=== PATIENT | female | born 1995 | race Caucasian/White ===

== ENCOUNTER 2017-12-30 14:39 | Emergency (ER) | payer OTHER ==
[2017-12-30] MEDS ORDERED: XYLOCAINE 1% HCL 20 ML MDV IJ ONE (18:28)
[2017-12-30] MEDS ORDERED: BACIGUENT PACKET TP ONE (18:47)
[2017-12-30] MEDS ORDERED: XYLOCAINE 1% HCL 20 ML MDV ONE (18:48)
[2017-12-30] MEDS ORDERED: BACIGUENT PACKET ONE (18:48)
--- NOTE | 2017-12-30 18:53 | ERPHSYRPT ---
- History of Present Illness Time Seen by Provider: 12/30/17 18:47 Source: patient, other Exam Limitations: no limitations Patient Subjective Stated Complaint: cut hand on broken dog bowl. Triage Nursing Assessment: has laceration to right middle finger, no bleeding, aprox 1/2cm Physician History: The patient is a 22-year-old right-handed female with her boyfriend complaining that she accidentally cut the distal part of her right middle finger on a broken dog bowl prior to arrival. She denies numbness or tingling. She is able to bend and extend her middle finger without any problems. Her last tetanus vaccination was less than 5 years ago. Timing/Duration: today Quality: other (bleeding) Severity: mild Location: hands (right middle finger) Possible Causes: other (glass) Allergies/Adverse Reactions: No Known Drug Allergies Allergy (Unverified 12/30/17 15:08) Home Medications: Clonazepam 0.5 mg [Klonopin 0.5 MG] 0.5 mg DAILY 12/30/17 [History] Fluoxetine HCl 20 mg [Prozac 20 MG] 20 mg DAILY 12/30/17 [History] Hx Tetanus, Diphtheria Vaccination/Date Given: Yes Hx Influenza Vaccination/Date Given: No Hx Pneumococcal Vaccination/Date Given: No Immunizations Up to Date: Yes - Review of Systems Constitutional: No Fever, No Chills Eyes: No Symptoms Ears, Nose, & Throat: No Symptoms Respiratory: No Cough, No Dyspnea Cardiac: No Chest Pain, No Edema, No Syncope Abdominal/Gastrointestinal: No Abdominal Pain, No Nausea, No Vomiting, No Diarrhea Genitourinary Symptoms: No Dysuria Musculoskeletal: No Back Pain, No Neck Pain Skin: Other (laceration) Neurological: No Dizziness, No Focal Weakness, No Sensory Changes Psychological: No Symptoms Endocrine: No Symptoms Hematologic/Lymphatic: No Symptoms Immunological/Allergic: No Symptoms All Other Systems: Reviewed and Negative - Past Medical History Pertinent Past Medical History: No - Past Surgical History Past Surgical History: Yes - Social History Smoking Status: Never smoker Exposure to second hand smoke: Yes Drug Use: none Patient Lives Alone: No - Female History Hx Last Menstrual Period: now Hx Now: No - Nursing Vital Signs Nursing Vital Signs: Initial Vital Signs Pulse Rate 106 H 12/30/17 15:50 Respiratory Rate 18 12/30/17 15:50 Blood Pressure 110/82 12/30/17 15:50 Pain Scale Pain Intensity 7 - Physical Exam General Appearance: no apparent distress, alert Eye Exam: PERRL/EOMI, eyes nml inspection Ears, Nose, Throat Exam: normal ENT inspection, pharynx normal, moist mucous membranes Neck Exam: normal inspection, non-tender, supple, full range of motion Respiratory Exam: normal breath sounds, lungs clear, No respiratory distress Cardiovascular Exam: regular rate/rhythm, normal heart sounds Gastrointestinal/Abdomen Exam: soft, mass, No tenderness Pelvic Exam: not done Rectal Exam: not done Back Exam: normal inspection, normal range of motion, No CVA tenderness, No vertebral tenderness Extremity Exam: normal inspection, normal range of motion Neurologic Exam: alert, oriented x 3, cooperative, normal mood/affect, sensation nml, No motor deficits Skin Exam: laceration (1 cm laceration to palmar side of DIP joint of right middle finger) SpO2 Interpretation: normal Oxygen Delivery: Room Air Procedures - Laceration/Wound Repair Right Distal Finger Wound Location: Right, hand Wound Length (cm): 1 Wound's Depth, Shape: superficial, linear Wound Explored: clean Irrigated: Yes Hibiclens Prep: Yes Anesthesia: local, 1% Lidocaine Volume Anesthetic (ccs): 3 Wound Repaired With: sutures Suture Size/Type: 4-0 Number of Sutures: 2 Layer Closure?: No Sterile Dressing Applied?: Yes Splint Applied?: Yes Sling Applied?: No Ordered Tests: Medication Summary Discontinued Medications Generic Name Dose Route Start Last Admin Trade Name Thomasq PRN Reason Stop Dose Admin Lidocaine HCl 10 ml 12/30/17 18:28 Xylocaine 1% Hcl 20 Ml Mdv IJ 12/30/17 18:29 STAT ONE - Progress Progress: improved Counseled pt/family regarding: diagnosis, need for follow-up - Departure Time of Disposition: 18:51 Departure Disposition: Home Clinical Impression: Finger laceration Condition: Stable Critical Care Time: No Referrals: DOCTOR,NO FAMILY [Primary Care Provider] - Additional Instructions: You have a laceration to your right finger. 2 sutures were used to close the laceration. Have the sutures removed in 12-14 days. You were put in a finger splint for one to 2 days. You can get the finger wet briefly but do not take a bath for a long period of time. Have your primary care doctor remove the sutures.
[2017-12-30 18:56] VITALS: BP 129/98; PULSE 88; O2SAT 99
== END 2017-12-30 18:59 | disposition home or self-care (01) ==
LOC: ED 14:39
DX: S61.212A Laceration without foreign body of right middle finger without damage to nail, initial encounter (principal); W45.8XXA Other foreign body or object entering through skin, initial encounter
CPT/HCPCS: 12001; 96372; 99284; A9270-GY

== ENCOUNTER 2019-09-20 07:27 | Emergency (ER) | payer OTHER ==
--- NOTE | 2019-09-20 07:31 | ERPHSYRPT ---
- History of Present Illness Time Seen by Provider: 09/20/19 07:31 Historian: patient Exam Limitations: no limitations Physician History: This is a 23-year-old white female whose had no prior abdominal surgeries and is just about ready to start her menstrual. And presents with left lower quadrant abdominal pain. Last week, the patient stated that she was constipated for a few days. She took a stool softener and since that time she has had bowel movements daily. There was some aching and pressure in the left lower quadrant yesterday. However, this morning the pain was sharp and much worse. She is had no nausea vomiting or diarrhea. She has had no vaginal discharge. The pain stays in the left lower quadrant without radiation Timing/Duration: yesterday, worse Activities at Onset: none Quality: sharpness, stabbing Abdominal Pain Onset Location: LLQ Pain Radiation: no radiation Severity of Pain-Max: moderate Severity of Pain-Current: moderate Modifying Factors: Improves With: urinating (Feels pressure) Associated Symptoms: denies symptoms Previous symptoms: no prior history Allergies/Adverse Reactions: No Known Drug Allergies Allergy (Verified 09/20/19 07:37) Home Medications: Clonazepam 0.5 mg [Klonopin 0.5 MG] 0.5 mg PO DAILY 12/30/17 [History] Fluoxetine HCl 20 mg [Prozac 20 MG] 20 mg PO DAILY 12/30/17 [History] Hx Tetanus, Diphtheria Vaccination/Date Given: Yes Hx Influenza Vaccination/Date Given: No Hx Pneumococcal Vaccination/Date Given: No Travel Risk - International Travel Have you traveled outside of the country in past 3 weeks: No - Coronavirus Screening Are you exhibiting any of the following symptoms?: No Close contact with a COVID-19 positive Pt in past 14-21 Days: No - Review of Systems Constitutional: No Symptoms Eyes: No Symptoms Ears, Nose, & Throat: No Symptoms Respiratory: No Symptoms Cardiac: No Symptoms Abdominal/Gastrointestinal: Abdominal Pain Genitourinary Symptoms: No Symptoms Musculoskeletal: No Symptoms Skin: No Symptoms Neurological: No Symptoms Psychological: No Symptoms Endocrine: No Symptoms Hematologic/Lymphatic: No Symptoms Immunological/Allergic: No Symptoms All Other Systems: Reviewed and Negative - Past Medical History Pertinent Past Medical History: No Neurological History: No Pertinent History ENT History: No Pertinent History Cardiac History: No Pertinent History Respiratory History: No Pertinent History Endocrine Medical History: No Pertinent History Musculoskeletal History: No Pertinent History GI Medical History: No Pertinent History History: No Pertinent History Psycho-Social History: No Pertinent History Female Reproductive Disorders: No Pertinent History - Past Surgical History Past Surgical History: Yes Neuro Surgical History: No Pertinent History Cardiac: No Pertinent History Respiratory: No Pertinent History Gastrointestinal: No Pertinent History Genitourinary: No Pertinent History Musculoskeletal: No Pertinent History Female Surgical History: No Pertinent History - Social History Smoking Status: Never smoker Exposure to second hand smoke: Yes Drug Use: none Patient Lives Alone: No - Nursing Vital Signs Nursing Vital Signs: Initial Vital Signs Pulse Rate 99 H 09/20/19 07:38 Respiratory Rate 18 09/20/19 07:38 Blood Pressure 135/92 09/20/19 07:38 O2 Sat by Pulse Oximetry 97 09/20/19 07:38 Pain Scale Pain Intensity 7 - Physical Exam General Appearance: no apparent distress, alert, anxiety Eye Exam: PERRL/EOMI, eyes nml inspection Ears, Nose, Throat Exam: normal ENT inspection, moist mucous membranes Neck Exam: normal inspection, non-tender, supple, full range of motion Respiratory Exam: normal breath sounds, lungs clear, airway intact, No chest tenderness, No respiratory distress Cardiovascular Exam: regular rate/rhythm, normal heart sounds, normal peripheral pulses Gastrointestinal/Abdomen Exam: soft, normal bowel sounds, tenderness (Mild left lower quadrant), guarding (Tenderness left lower quadrant mild left lower quadrant), No rebound Pelvic Exam: not done Rectal Exam: not done Back Exam: normal inspection, normal range of motion, No CVA tenderness, No vertebral tenderness Extremity Exam: normal inspection, normal range of motion, pelvis stable Neurologic Exam: alert, oriented x 3, cooperative, sod stripper II-XII nml as tested, nml cerebellar function, nml station & gait, sensation nml Skin Exam: normal color, warm, dry Lymphatic Exam: No adenopathy O2 Delivery: Room Air - Course Nursing assessment & vital signs reviewed: Yes Ordered Tests: Active Orders 24 hr Category Date Time Status IV Insertion STAT Care 09/20/19 07:47 Active ABDOMEN AND PELVIS W/0 CONTRAS [CT] Stat Exams 09/20/19 08:32 Completed AMYLASE Stat Lab 09/20/19 Completed CBC W DIFF Stat Lab 09/20/19 08:00 Completed CMP Stat Lab 09/20/19 Completed HCG,QUALITATIVE URINE Stat Lab 09/20/19 Completed LIPASE Stat Lab 09/20/19 Completed Lactic Acid Stat Lab 09/20/19 07:55 Completed UA W/RFX UR CULTURE Stat Lab 09/20/19 Completed Urine Triage Profile Stat Lab 09/20/19 Completed Lab/Rad Data: Laboratory Result Diagrams 09/20/19 08:00 09/20/19 Unknown Laboratory Results 09/20/19 09/20/19 09/20/19 Range/Units Unknown Unknown Unknown WBC (4.0-10.5) K/mm3 RBC (4.1-5.4) M/mm3 Hgb (12.0-16.0) gm/dl Hct (35-47) % MCV (78-100) fl MCH (26-32) pg MCHC (32-36) g/dl RDW (11.5-14.0) % Plt Count (150-450) K/mm3 MPV (7.5-11.0) fl Gran % (36.0-66.0) % Eos # (Auto) (0-0.5) Absolute Lymphs (auto) (1.0-4.6) Absolute Monos (auto) (0.0-1.3) Lymphocytes % (24.0-44.0) % Monocytes % (0.0-12.0) % Eosinophils % (0.00-5.0) % Basophils % (0.0-0.4) % Absolute Granulocytes (1.4-6.9) Basophils # (0-0.4) Sodium (137-145) mmol/L Potassium (3.5-5.1) mmol/L Chloride (98-107) mmol/L Carbon Dioxide (22-30) mmol/L Anion Gap (5-15) MEQ/L BUN (7-17) mg/dL Creatinine (0.52-1.04) mg/dL Estimated GFR ML/MIN Glucose (74-106) mg/dL Lactic Acid (0.4-2.0) Calcium (8.4-10.2) mg/dL Total Bilirubin (0.2-1.3) mg/dL AST (14-36) U/L ALT (0-35) U/L Alkaline Phosphatase (38-126) U/L Serum Total Protein (6.3-8.2) g/dL Albumin (3.5-5.0) g/dL Amylase (30-110) U/L Lipase (23-300) U/L Urine Color YELLOW (YELLOW) Urine Appearance SLIGHTLY CLOUDY (CLEAR) Urine pH 5.0 (5-6) Ur Specific Bradford 1.020 (1.005-1.025) Urine Protein NEGATIVE (Negative) Urine Ketones NEGATIVE (NEGATIVE) Urine Blood NEGATIVE (0-5) Mikel/ul Urine Nitrite NEGATIVE (NEGATIVE) Urine Bilirubin NEGATIVE (NEGATIVE) Urine Urobilinogen NEGATIVE (0-1) mg/dL Ur Leukocyte Esterase NEGATIVE (NEGATIVE) Urine WBC (Auto) NONE (0-5) /HPF Urine RBC (Auto) 3-5 (0-2) /HPF U Epithel Cells (Auto) FEW (FEW) /HPF Urine Bacteria (Auto) RARE (NEGATIVE) /HPF Urine Mucus (Auto) SLIGHT (NEGATIVE) /HPF Urine Culture Reflexed NO (NO) Urine Glucose NEGATIVE (NEGATIVE) mg/dL Urine HCG, Qual NEGATIVE (Negative) Urine Opiates Level NEGATIVE (NEGATIVE) Ur Methadone NEGATIVE (NEGATIVE) Urine Barbiturates NEGATIVE (NEGATIVE) Ur Phencyclidine (PCP) NEGATIVE (NEGATIVE) Urine Amphetamine NEGATIVE (NEGATIVE) U Benzodiazepine Level NEGATIVE (NEGATIVE) Urine Cocaine NEGATIVE (NEGATIVE) Urine Marijuana (THC) NEGATIVE (NEGATIVE) 09/20/19 09/20/19 09/20/19 Range/Units Unknown 08:00 07:55 WBC 5.4 (4.0-10.5) K/mm3 RBC 4.91 (4.1-5.4) M/mm3 Hgb 13.0 (12.0-16.0) gm/dl Hct 40.8 (35-47) % MCV 83.1 (78-100) fl MCH 26.5 (26-32) pg MCHC 31.9 L (32-36) g/dl RDW 14.0 (11.5-14.0) % Plt Count 229 (150-450) K/mm3 MPV 10.9 (7.5-11.0) fl Gran % 45.1 (36.0-66.0) % Eos # (Auto) 0.11 (0-0.5) Absolute Lymphs (auto) 2.44 (1.0-4.6) Absolute Monos (auto) 0.39 (0.0-1.3) Lymphocytes % 45.1 H (24.0-44.0) % Monocytes % 7.2 (0.0-12.0) % Eosinophils % 2.0 (0.00-5.0) % Basophils % 0.6 (0.0-0.4) % Absolute Granulocytes 2.44 (1.4-6.9) Basophils # 0.03 (0-0.4) Sodium 138 (137-145) mmol/L Potassium 3.6 (3.5-5.1) mmol/L Chloride 103 (98-107) mmol/L Carbon Dioxide 27 (22-30) mmol/L Anion Gap 11.4 (5-15) MEQ/L BUN 13 (7-17) mg/dL Creatinine 0.78 (0.52-1.04) mg/dL Estimated GFR > 60.0 ML/MIN Glucose 103 (74-106) mg/dL Lactic Acid 0.8 (0.4-2.0) Calcium 9.4 (8.4-10.2) mg/dL Total Bilirubin 0.40 (0.2-1.3) mg/dL AST 24 (14-36) U/L ALT 18 (0-35) U/L Alkaline Phosphatase 82 (38-126) U/L Serum Total Protein 7.8 (6.3-8.2) g/dL Albumin 4.5 (3.5-5.0) g/dL Amylase 72 (30-110) U/L Lipase 178 (23-300) U/L Urine Color (YELLOW) Urine Appearance (CLEAR) Urine pH (5-6) Ur Specific Bradford (1.005-1.025) Urine Protein (Negative) Urine Ketones (NEGATIVE) Urine Blood (0-5) Mikel/ul Urine Nitrite (NEGATIVE) Urine Bilirubin (NEGATIVE) Urine Urobilinogen (0-1) mg/dL Ur Leukocyte Esterase (NEGATIVE) Urine WBC (Auto) (0-5) /HPF Urine RBC (Auto) (0-2) /HPF U Epithel Cells (Auto) (FEW) /HPF Urine Bacteria (Auto) (NEGATIVE) /HPF Urine Mucus (Auto) (NEGATIVE) /HPF Urine Culture Reflexed (NO) Urine Glucose (NEGATIVE) mg/dL Urine HCG, Qual (Negative) Urine Opiates Level (NEGATIVE) Ur Methadone (NEGATIVE) Urine Barbiturates (NEGATIVE) Ur Phencyclidine (PCP) (NEGATIVE) Urine Amphetamine (NEGATIVE) U Benzodiazepine Level (NEGATIVE) Urine Cocaine (NEGATIVE) Urine Marijuana (THC) (NEGATIVE) - Progress Progress: unchanged Progress Note: 09/20/19 09:25 CAT scan of the abdomen pelvis reveals to left ovarian cyst. No other acute intra-abdominal abnormality. The appendix is visualized and it is normal Counseled pt/family regarding: lab results, diagnosis, need for follow-up, rad results - Departure Departure Disposition: Home Clinical Impression: Left ovarian cyst Condition: Stable Critical Care Time: No Referrals: DOCTOR,NO FAMILY [Primary Care Provider] - Additional Instructions: Drink plenty of fluids. Use Tylenol and ibuprofen for pain. Follow-up with your primary care physician for further management.
[2019-09-20 07:49] VITALS: O2SAT 97
[2019-09-20 08:17] LABS: Absolute Neutrophil Ct (ANC) 2.44 (1.4-6.9); BASOPHIL % 0.6 % (0.0-0.4); Basophil (Absolute #) 0.03 (0-0.4); Eosinophil (Absolute #) 0.11 (0-0.5); Hematocrit 40.8 % (35-47); Lymphocyte (Absolute #) 2.44 (1.0-4.6); Lymphocytes % 45.1 % (24.0-44.0); Mean Cell Volume 83.1 fl (78-100); Mean Corpuscular Hemoglobin 26.5 pg (26-32); Mean Corpuscular Hgb Concent. 31.9 g/dl (32-36); Mean Platelet Volume 10.9 fl (7.5-11.0); Monocyte (Absolute #) 0.39 (0.0-1.3); Monocytes % 7.2 % (0.0-12.0); Neutrophil % 45.1 % (36.0-66.0); Platelet Count 229 K/mm3 (150-450); Red Blood Count 4.91 M/mm3 (4.1-5.4); White Blood Count 5.4 K/mm3 (4.0-10.5)
[2019-09-20 08:29] LABS: Appearance SLIGHTLY CLOUDY (CLEAR); Bacteria RARE /HPF (NEGATIVE); Bilirubin NEGATIVE (NEGATIVE); Blood NEGATIVE Ery/ul (0-5); Epithelial Cells FEW /HPF (FEW); Glucose NEGATIVE (NEGATIVE); Ketones NEGATIVE (NEGATIVE); Leukocyte Esterase NEGATIVE (NEGATIVE); Mucus SLIGHT /HPF (NEGATIVE); Nitrite NEGATIVE (NEGATIVE); Protein,Urine Dip NEGATIVE (Negative); Urobilinogen NEGATIVE mg/dL (0-1)
[2019-09-20 08:39] LABS: ALBUMIN 4.5 g/dL (3.5-5.0); ALKALINE PHOSPHATASE 82 U/L (38-126); AMYLASE 72 U/L (30-110); ANION GAP 11.4 MEQ/L (5-15); BLOOD UREA NITROGEN 13 mg/dL (7-17); CHLORIDE 103 mmol/L (98-107); Calcium 9.4 mg/dL (8.4-10.2); Carbon Dioxide 27 mmol/L (22-30); Creatinine 1 0.78 mg/dL (0.52-1.04); Glucose 103 mg/dL (74-106); LIPASE 178 U/L (23-300); Potassium 3.6 mmol/L (3.5-5.1); SGOT/AST 24 U/L (14-36); SGPT/ALT 18 U/L (0-35); SODIUM 138 mmol/L (137-145); Total Protein 7.8 g/dL (6.3-8.2)
[2019-09-20 08:50] LABS: Amphetamine,Urine NEGATIVE (NEGATIVE); Barbiturate,Urine NEGATIVE (NEGATIVE); Benzodiazepine,Urine NEGATIVE (NEGATIVE); Cocaine,Urine NEGATIVE (NEGATIVE); Methadone,Urine NEGATIVE (NEGATIVE); Opiate,Urine NEGATIVE (NEGATIVE); PCP,Urine NEGATIVE (NEGATIVE); THC,Urine NEGATIVE (NEGATIVE)
--- NOTE | 2019-09-20 09:11 | XRAY ---
Indication: Left lower quadrant pain. Multiple contiguous axial images obtained through the abdomen and pelvis without contrast as ordered. Comparison: None Lung bases are clear. Heart is not enlarged. Noncontrasted stomach and bowel loops appear nonobstructed. Normal appendix. Left ovary demonstrates a 3.2 cm and 1.6 cm cyst. No free fluid/air. Borderline splenomegaly measuring 12.3 cm. Remaining liver, gallbladder, pancreas, spleen, adrenal glands, kidneys, ureters, bladder, uterus, and aorta appear unremarkable for noncontrast exam. Osseous structures intact. Incidental tiny multilevel thoracolumbar Schmorl nodes and bilateral L5 spondylolysis without spondylolisthesis. Impression: 1. 3.2 cm and 1.6 cm left ovary cysts. 2. Incidental borderline splenomegaly and chronic bony findings.
[2019-09-20 09:24] VITALS: BP 124/81; PULSE 99
== END 2019-09-20 09:39 | disposition home or self-care (01) ==
LOC: ED 07:27
DX: N83.202 Unspecified ovarian cyst, left side (principal)
CPT/HCPCS: 36000; 36415; 74176; 80053; 80307; 81001; 82150; 83605; 83690; 84703; 85025; 99284

== ENCOUNTER 2019-10-03 09:55 | Emergency (ER) | payer OTHER ==
--- NOTE | 2019-10-03 10:09 | ERPHSYRPT ---
- History of Present Illness Time Seen by Provider: 10/03/19 10:00 Source: patient Exam Limitations: no limitations Physician History: Patient is a 23-year-old female presents to our ED with complaints of pain to her left ear. Pain started yesterday. Pain described as a dull ache with a fullness sensation to her left face. No trauma. No fever. Symptoms are progressive. No associated nausea or vomiting. No ear drainage. Very slight dizziness sensation. No associated numbness tingling or weakness. Patient declined pain medication. Patient otherwise healthy. She voices no other complaints at this time. Timing/Duration: gradual onset, yesterday ENT Location: ear (L) Prearrival Treatment: no prearrival treatment Modifying Factors: Improves With: nothing Associated Symptoms: dizziness Allergies/Adverse Reactions: No Known Drug Allergies Allergy (Verified 10/03/19 10:08) Home Medications: Clonazepam 0.5 mg [Klonopin 0.5 MG] 0.5 mg PO DAILY 12/30/17 [History] Fluoxetine HCl 20 mg [Prozac 20 MG] 20 mg PO DAILY 12/30/17 [History] Hx Tetanus, Diphtheria Vaccination/Date Given: Yes Hx Influenza Vaccination/Date Given: No Hx Pneumococcal Vaccination/Date Given: No - Review of Systems Constitutional: No Symptoms, No Fever, No Chills Eyes: No Symptoms Ears, Nose, & Throat: No Symptoms Respiratory: No Symptoms, No Cough, No Dyspnea Cardiac: No Symptoms, No Chest Pain, No Edema, No Syncope Abdominal/Gastrointestinal: No Symptoms, No Abdominal Pain, No Nausea, No Vomiting, No Diarrhea Genitourinary Symptoms: No Symptoms, No Dysuria Musculoskeletal: No Symptoms, No Back Pain, No Neck Pain Skin: No Symptoms, No Rash Neurological: No Symptoms, No Dizziness, No Focal Weakness, No Sensory Changes Psychological: No Symptoms Endocrine: No Symptoms Hematologic/Lymphatic: No Symptoms Immunological/Allergic: No Symptoms All Other Systems: Reviewed and Negative - Past Medical History Pertinent Past Medical History: No Neurological History: No Pertinent History ENT History: No Pertinent History Cardiac History: No Pertinent History Respiratory History: No Pertinent History Endocrine Medical History: No Pertinent History Musculoskeletal History: No Pertinent History GI Medical History: No Pertinent History History: No Pertinent History Psycho-Social History: No Pertinent History Female Reproductive Disorders: No Pertinent History - Past Surgical History Past Surgical History: Yes Neuro Surgical History: No Pertinent History Cardiac: No Pertinent History Respiratory: No Pertinent History Gastrointestinal: No Pertinent History Genitourinary: No Pertinent History Musculoskeletal: No Pertinent History Female Surgical History: No Pertinent History - Social History Smoking Status: Never smoker Exposure to second hand smoke: Yes Drug Use: none Patient Lives Alone: No - Nursing Vital Signs Nursing Vital Signs: Initial Vital Signs Temperature 97.5 F 10/03/19 09:59 Pulse Rate 84 10/03/19 09:59 Respiratory Rate 18 10/03/19 09:59 Blood Pressure 133/85 10/03/19 09:59 O2 Sat by Pulse Oximetry 98 10/03/19 09:59 Pain Scale Pain Intensity 5 - Physical Exam General Appearance: no apparent distress, alert Eye Exam: bilateral eye: normal inspection, PERRL, EOMI Ear Exam: right ear: canal normal (The canal is mildly erythematous immediately adjacent to the tympanic membrane. Tympanic membrane appears to be slightly bulging versus the right side.), TM normal (Injected left TM.), left ear: auricle normal, tenderness, TM red, TM bulging Nasal Exam: normal inspection Throat Exam: pharynx normal, moist mucus membranes, No tonsillar exudate Neck Exam: normal inspection, non-tender, supple, full range of motion Cardiovascular/Respiratory Exam: normal breath sounds, regular rate/rhythm Abdominal Exam: non-tender, soft Neurologic Exam: alert, oriented x 3, sensation nml, No motor deficits Skin Exam: normal color, warm, dry SpO2 Interpretation: normal SpO2: 98 O2 Delivery: Room Air - Course Nursing assessment & vital signs reviewed: Yes - Progress Progress: unchanged Progress Note: 10/03/19 10:21 Patient reassessed. She feels well overall. Patient declined pain medication. Physical exam significant for otitis media left ear. No mastoid pain or tenderness. 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 No known allergies. Work note provided per patient request. Patient agrees to follow-up with her primary care doctor within 48 hours for reevaluation. Patient voiced no other complaints or concerns at this time. Will discharge home. Counseled pt/family regarding: diagnosis, need for follow-up - Departure Departure Disposition: Home Clinical Impression: Otalgia of left ear, Otitis media Condition: Stable Critical Care Time: No Referrals: DOCTOR,NO FAMILY [Primary Care Provider] - CATARINA WOOD [ACTIVE STAFF] - Additional Instructions: Discharge/Care Plan ANGELICA GROSSMAN was seen on 10/03/19 in the Emergency Room. The patient was counseled regarding Diagnosis,Lab results, Imaging studies, need for follow up and when to return to the Emergency Room. Prescriptions given: Discharge Note I have spoken with the patient and/or caregivers. I have explained the patient's condition, diagnosis and treatment plan based on the information available to me at this time. I have answered the patient's and/or caregiver's questions and addressed any concerns. The patient and/or caregivers have as good understanding of the patient's diagnosis, condition and treatment plan as can be expected at this point. The vital signs have been stable. The patient's condition is stable and appropriate for discharge from the emergency department. The patient will pursue further outpatient evaluation with the primary care physician or other designated or consulting physician as outlined in the discharge instructions. The patient and/or caregivers are agreeable to this plan of care and follow-up instructions have been explained in detail. The patient and/or caregivers have received these instruction. The patient/and or caregivers are aware that any significant change in condition or worsening of symptoms should prompt an immediate return to this or the closest emergency department or call 911. Forms: Work/School Release Form Prescriptions: Amox Tr/Potass Clav. 875 mg [Augmentin 875-125 Tablet] 1 each PO BID 7 Days #14 tablet
[2019-10-03 10:27] VITALS: BP 126/83; PULSE 86; O2SAT 97
== END 2019-10-03 10:18 | disposition home or self-care (01) ==
LOC: ED 09:55
DX: H92.02 Otalgia, left ear (principal); H66.92 Otitis media, unspecified, left ear
CPT/HCPCS: 99283

== ENCOUNTER 2019-12-19 02:43 | Emergency (ER) | payer OTHER ==
[2019-12-19 02:53] VITALS: O2SAT 98
[2019-12-19] MEDS ORDERED: Sodium Chloride 0.9% 1000 ML 1,000 ML ONE (03:16)
[2019-12-19] MEDS ORDERED: Sodium Chloride 0.9% 1000 ML 1,000 ML IV STA (03:21)
[2019-12-19 03:47] LABS: Absolute Neutrophil Ct (ANC) 2.86 (1.4-6.9); BASOPHIL % 0.4 % (0.0-0.4); Basophil (Absolute #) 0.02 (0-0.4); Eosinophil % 2.3 % (0.00-5.0); Eosinophil (Absolute #) 0.13 (0-0.5); Hematocrit 40.3 % (35-47); Hemoglobin 13.1 gm/dl (12.0-16.0); Lymphocyte (Absolute #) 2.13 (1.0-4.6); Lymphocytes % 38.1 % (24.0-44.0); Mean Cell Volume 82.6 fl (78-100); Mean Corpuscular Hemoglobin 26.8 pg (26-32); Mean Corpuscular Hgb Concent. 32.5 g/dl (32-36); Mean Platelet Volume 10.6 fl (7.5-11.0); Monocyte (Absolute #) 0.45 (0.0-1.3); Monocytes % 8.1 % (0.0-12.0); Neutrophil % 51.1 % (36.0-66.0); Platelet Count 219 K/mm3 (150-450); Red Blood Count 4.88 M/mm3 (4.1-5.4); Red Cell Distribution Width 13.5 % (11.5-14.0); White Blood Count 5.6 K/mm3 (4.0-10.5)
[2019-12-19 03:54] LABS: ALBUMIN 4.5 g/dL (3.5-5.0); ALKALINE PHOSPHATASE 68 U/L (38-126); AMYLASE 70 U/L (30-110); ANION GAP 9.7 MEQ/L (5-15); BLOOD UREA NITROGEN 10 mg/dL (7-17); CHLORIDE 105 mmol/L (98-107); Carbon Dioxide 25 mmol/L (22-30); Creatinine 1 0.74 mg/dL (0.52-1.04); EST GLOMERULAR FILTRATION RATE > 60.0 ML/MIN; Glucose 106 mg/dL (74-106); LIPASE 139 U/L (23-300); Potassium 3.7 mmol/L (3.5-5.1); SGOT/AST 26 U/L (14-36); SGPT/ALT 22 U/L (0-35); SODIUM 136 mmol/L (137-145); Total Protein 7.5 g/dL (6.3-8.2)
[2019-12-19 04:39] VITALS: BP 122/86; PULSE 84
--- NOTE | 2019-12-19 04:42 | ERPHSYRPT ---
- History of Present Illness Time Seen by Provider: 12/19/19 03:05 Historian: patient Exam Limitations: no limitations Patient Subjective Stated Complaint: Patient states " I woke up around 0220 to go to bathroom and noticed that there was blood in my stool". Patient states " I have been having left sided ABD pain that radiates down into my left leg." Triage Nursing Assessment: Patient arrived to ER per self. Patient A/O times 4. Lungs clear bilateral A/P throughout. Patient denies SOB/chest pain. Patient denies N/V. Patient denies H/A. Patient states she has been having loose stools because she has been treating C-DIFF infection and is currently on oral ATB and Flagyl. + BS times 4 quads and are hyperactive. Patient with no external hem orrhoids. Cap refill < 3 seconds. Skin turgor < 3 seconds. Overall appearance pink in color and skin intact. Patient denies ABD pain upon palpitation. No edema noted to bilateral lower extremities. + pedal pulses bilateral. hand advertising clerk strong and equal. Physician History: Is a 24-year-old white female who was recently diagnosed with positive C. difficile toxin in her stool. She has been on the medication for approximately 7 days and has 3 more days to go up Cipro and Flagyl. She had a CAT scan done yesterday which did not show any acute intra-abdominal process. She was concerned because she woke up at approximately 220 this morning and had a bowel movement there was blood in it. She does have mild pain in the left lower quadrant but it is not severe. She has had no nausea vomiting. Timing/Duration: today Activities at Onset: none Abdominal Pain Onset Location: LLQ Pain Radiation: no radiation Severity of Pain-Max: mild Severity of Pain-Current: mild Modifying Factors: Improves With: defecating. Worsens With: coughing, vomiting Associated Symptoms: No fever/chills, No nausea, No vomiting Previous symptoms: same symptoms as today, recently seen, recently treated Allergies/Adverse Reactions: No Known Drug Allergies Allergy (Verified 12/19/19 02:59) Home Medications: Clonazepam 0.5 mg [Klonopin 0.5 MG] 0.5 mg PO DAILY 12/30/17 [History] Fluoxetine HCl 20 mg [Prozac 20 MG] 20 mg PO DAILY 12/30/17 [History] Ciprofloxacin HCl [Cipro] 500 mg PO BID 12/19/19 [History] Metronidazole 500 mg [Flagyl 500 MG] 500 mg PO TID 12/19/19 [History] Hx Tetanus, Diphtheria Vaccination/Date Given: Yes Hx Influenza Vaccination/Date Given: No Hx Pneumococcal Vaccination/Date Given: No Immunizations Up to Date: Yes Travel Risk - International Travel Have you traveled outside of the country in past 3 weeks: No - Coronavirus Screening Are you exhibiting any of the following symptoms?: No Close contact with a COVID-19 positive Pt in past 14-21 Days: No - Review of Systems Constitutional: No Symptoms Eyes: No Symptoms Ears, Nose, & Throat: No Symptoms Respiratory: No Symptoms Cardiac: No Symptoms Abdominal/Gastrointestinal: Abdominal Pain (Left lower quadrant), Diarrhea, No Nausea, No Vomiting Genitourinary Symptoms: No Symptoms Musculoskeletal: No Symptoms Skin: No Symptoms Neurological: No Symptoms Psychological: No Symptoms Endocrine: No Symptoms Hematologic/Lymphatic: No Symptoms Immunological/Allergic: No Symptoms All Other Systems: Reviewed and Negative - Past Medical History Pertinent Past Medical History: No Neurological History: No Pertinent History ENT History: No Pertinent History Cardiac History: No Pertinent History Respiratory History: No Pertinent History Endocrine Medical History: No Pertinent History Musculoskeletal History: No Pertinent History GI Medical History: No Pertinent History History: No Pertinent History Psycho-Social History: No Pertinent History Female Reproductive Disorders: No Pertinent History Other Medical History: HX C-DIFF - Past Surgical History Past Surgical History: Yes Neuro Surgical History: No Pertinent History Cardiac: No Pertinent History Respiratory: No Pertinent History Gastrointestinal: No Pertinent History Genitourinary: No Pertinent History Musculoskeletal: No Pertinent History Female Surgical History: No Pertinent History - Social History Smoking Status: Never smoker Exposure to second hand smoke: Yes Drug Use: none Patient Lives Alone: No - Female History Hx Last Menstrual Period: 11/19/19 Hx Now: No - Nursing Vital Signs Nursing Vital Signs: Initial Vital Signs Temperature 98.0 F 12/19/19 02:51 Pulse Rate 90 12/19/19 02:51 Respiratory Rate 20 12/19/19 02:51 Blood Pressure 156/83 12/19/19 02:51 O2 Sat by Pulse Oximetry 98 12/19/19 02:51 Pain Scale Pain Intensity 7 - Physical Exam General Appearance: no apparent distress, alert, anxiety Eye Exam: PERRL/EOMI, eyes nml inspection Ears, Nose, Throat Exam: normal ENT inspection, moist mucous membranes Neck Exam: normal inspection, non-tender, supple, full range of motion Respiratory Exam: normal breath sounds, lungs clear, airway intact, No chest tenderness, No respiratory distress Cardiovascular Exam: regular rate/rhythm, normal heart sounds, normal peripheral pulses Gastrointestinal/Abdomen Exam: soft, normal bowel sounds, No tenderness Pelvic Exam: not done Rectal Exam: not done Back Exam: normal inspection, normal range of motion, No CVA tenderness, No vertebral tenderness Extremity Exam: normal inspection, normal range of motion, pelvis stable Neurologic Exam: alert, oriented x 3, cooperative, anatomy teacher II-XII nml as tested, no rmal mood/affect, nml cerebellar function, nml station & gait, sensation nml Skin Exam: normal color, warm, dry Lymphatic Exam: No adenopathy SpO2 Interpretation: normal SpO2: 98 O2 Delivery: Room Air - Course Nursing assessment & vital signs reviewed: Yes Ordered Tests: Active Orders 24 hr Category Date Time Status IV Insertion STAT Care 12/19/19 03:22 Active AMYLASE Stat Lab 12/19/19 03:30 Completed CBC W DIFF Stat Lab 12/19/19 03:30 Completed CMP Stat Lab 12/19/19 03:30 Completed LIPASE Stat Lab 12/19/19 03:30 Completed Lactic Acid Stat Lab 12/19/19 04:03 Completed Medication Summary Discontinued Medications Generic Name Dose Route Start Last Admin Trade Name Thomasq PRN Reason Stop Dose Admin Sodium Chloride Confirm 12/19/19 03:16 Sodium Chloride 0.9% 1000 Ml Administered 12/19/19 03:17 Dose 1,000 mls @ ud .ROUTE .STK-MED ONE Sodium Chloride 1,000 mls @ 999 mls/hr 12/19/19 03:21 12/19/19 03:22 Sodium Chloride 0.9% 1000 Ml IV 12/19/19 04:21 999 mls/hr .Q1H1M STA Administration Lab/Rad Data: Laboratory Result Diagrams 12/19/19 03:30 12/19/19 03:30 Laboratory Results 12/19/19 12/19/19 12/19/19 Range/Units 04:03 03:30 03:30 WBC 5.6 (4.0-10.5) K/mm3 RBC 4.88 (4.1-5.4) M/mm3 Hgb 13.1 (12.0-16.0) gm/dl Hct 40.3 (35-47) % MCV 82.6 (78-100) fl MCH 26.8 (26-32) pg MCHC 32.5 (32-36) g/dl RDW 13.5 (11.5-14.0) % Plt Count 219 (150-450) K/mm3 MPV 10.6 (7.5-11.0) fl Gran % 51.1 (36.0-66.0) % Eos # (Auto) 0.13 (0-0.5) Absolute Lymphs (auto) 2.13 (1.0-4.6) Absolute Monos (auto) 0.45 (0.0-1.3) Lymphocytes % 38.1 (24.0-44.0) % Monocytes % 8.1 (0.0-12.0) % Eosinophils % 2.3 (0.00-5.0) % Basophils % 0.4 (0.0-0.4) % Absolute Granulocytes 2.86 (1.4-6.9) Basophils # 0.02 (0-0.4) Sodium 136 L (137-145) mmol/L Potassium 3.7 (3.5-5.1) mmol/L Chloride 105 (98-107) mmol/L Carbon Dioxide 25 (22-30) mmol/L Anion Gap 9.7 (5-15) MEQ/L BUN 10 (7-17) mg/dL Creatinine 0.74 (0.52-1.04) mg/dL Estimated GFR > 60.0 ML/MIN Glucose 106 (74-106) mg/dL Lactic Acid 0.5 (0.4-2.0) Calcium 9.0 (8.4-10.2) mg/dL Total Bilirubin 0.30 (0.2-1.3) mg/dL AST 26 (14-36) U/L ALT 22 (0-35) U/L Alkaline Phosphatase 68 (38-126) U/L Serum Total Protein 7.5 (6.3-8.2) g/dL Albumin 4.5 (3.5-5.0) g/dL Amylase 70 (30-110) U/L Lipase 139 (23-300) U/L - Progress Progress: improved, pain not gone completely Counseled pt/family regarding: lab results, diagnosis, need for follow-up - Departure Departure Disposition: Home Clinical Impression: C. difficile colitis Condition: Stable Critical Care Time: No Referrals: PATRIA PENALOZA PA [Primary Care Provider] - Additional Instructions: Plenty of fluids. Continue your antibiotics as prescribed. Follow-up with your primary care doctor later today for further management.
== END 2019-12-19 04:51 | disposition home or self-care (01) ==
LOC: ED 02:43
DX: R10.32 Left lower quadrant pain (principal)
CPT/HCPCS: 36000; 36415; 80053; 82150; 83605; 83690; 85025; 96360; 99284